=== PATIENT | male | born 1975 | race Caucasian/White ===

== ENCOUNTER 2018-07-30 10:24 | Emergency (ER) | payer OTHER ==
[~2018-07-30] VITALS: Ht 167.6 cm; Wt 82.6 kg
== END 2018-07-30 17:48 | disposition home or self-care (01) ==
LOC: ER 10:24
DX: S93.492A Sprain of other ligament of left ankle, initial encounter (principal); X50.9XXA Other and unspecified overexertion or strenuous movements or postures, initial encounter; Y93.89 Activity, other specified; Y92.89 Other specified places as the place of occurrence of the external cause; Y99.8 Other external cause status

== ENCOUNTER → 2025-04-11 | Emergency (ER) | payer OTHER ==
[~2025-04-11] VITALS: Ht 167.6 cm; Wt 81.6 kg
[~2025-04-11] MED LIST: ACETAMINOPHEN500 M1 PO; CEFTRIAXONE SODIUM 1,000 MG VIAL IM ONE; CEFTRIAXONE SODIUM 1,000 MG VIAL ONE; CEPHALEXIN500 MG PO; DIPHTH,PERTUSS(ACELL),TET VAC 0.5 ML SYRINGE IM ONE; DIPHTH,PERTUSS(ACELL),TET VAC 0.5 ML VIAL IM ONE
[2025-04-11 11:19] VITALS: BP 132/87; O2SAT 97
== END | disposition home or self-care (01) ==
LOC: ER 10:37
DX: S61.214A Laceration without foreign body of right ring finger without damage to nail, initial encounter (principal); W45.8XXA Other foreign body or object entering through skin, initial encounter; Y93.89 Activity, other specified; Y92.69 Other specified industrial and construction area as the place of occurrence of the external cause; Y99.8 Other external cause status; I10 Essential (primary) hypertension
CPT/HCPCS: 12042; 90471; 90714; J1670

== ENCOUNTER → 2025-04-20 | Emergency (ER) | payer OTHER ==
[~2025-04-20] VITALS: Ht 165.1 cm; Wt 81.6 kg
[~2025-04-20] MED LIST changes: -CEFTRIAXONE SODIUM 1,000 MG VIAL IM ONE; -CEFTRIAXONE SODIUM 1,000 MG VIAL ONE; -DIPHTH,PERTUSS(ACELL),TET VAC 0.5 ML SYRINGE IM ONE; -DIPHTH,PERTUSS(ACELL),TET VAC 0.5 ML VIAL IM ONE
== END | disposition home or self-care (01) ==
LOC: ER 18:01
DX: Z48.02 Encounter for removal of sutures (principal)